=== PATIENT | female | born 1930 | race Caucasian/White ===

== ENCOUNTER 2017-01-12 08:49 | Inpatient (IN) | payer OTHER ==
[~2017-01-12] VITALS: Ht 160 cm; Wt 61.3 kg
[2017-01-12] VITALS (7 sets, daily range): BP systolic 132–158; BP diastolic 66–102
[~2017-01-12 08:49] MED LIST: DILT90TA PO; ENOX40SY4 SQ; FOLI-17 PO; HYDR-3237 PO; LISI-170 PO; LISINOPRIL; LOVA20TA68; LOVA40TA2 PO; METO25TA91 PO; MULT-750 PO
[2017-01-12 09:16] LABS: HEMOGLOBIN 14.6 g/dL (11.7-16.4); WHITE BLOOD COUNT 7.9 x10^3/uL (3.4-10)
[2017-01-12] MEDS ORDERED: DILTIAZEM 5 MG/ML, 5ML ONE (09:19)
[2017-01-12 09:29] LABS: ASPARTATE AMINO TRANSFERASE 13 U/L (15-37); BLOOD UREA NITROGEN 10 mg/dL (7-18)
[2017-01-12 09:34] LABS: IS PT STATUS REG ER OR PRE ER? YES
[2017-01-12] MEDS ORDERED: NYSTATIN TOPICAL POWDER 15GM TP SCH (10:00)
[2017-01-12] MEDS ORDERED: SODIUM CHLORIDE 0.9% 1,000 ML IV ONE ×2 (10:00→10:30)
[2017-01-12] MEDS ORDERED: DILTIAZEM 5 MG/ML, 5ML IV ONE (10:00)
[2017-01-12] MEDS ORDERED: SODIUM CHLORIDE 0.9% 1,000ML IVBOLUS ONE (10:00)
[2017-01-12] MEDS ORDERED: LISINOPRIL 20 MG TABLET PO SCH (10:30)
[2017-01-12] MEDS ORDERED: SODIUM CHLORIDE FLUSH 10ML SYR IVF PRN (10:30)
[2017-01-12] MEDS ORDERED: SODIUM CHLORIDE FLUSH 10ML SYR IVF ONE (10:30)
[2017-01-12] MEDS ORDERED: LISINOPRIL 20 MG TABLET ONE (11:34)
[2017-01-12] MEDS ORDERED: POTASSIUM CHLORIDE 20 MEQ TAB.ER.PRT PO ONE (12:00)
[2017-01-12] MEDS ORDERED: ACETAMINOPHEN 325 MG TABLET PO PRN (12:30)
[2017-01-12] MEDS ORDERED: ONDANSETRON ODT 4 MG PO PRN (12:30)
[2017-01-12] MEDS ORDERED: ONDANSETRON 2MG/ML, 2ML IVPush PRN (12:30)
[2017-01-12] MEDS ORDERED: BISACODYL 10 MG SUPP PR PRN (12:30)
[2017-01-12] MEDS ORDERED: LORazepam 2 MG/ML, 1ML IVPush PRN (12:30)
[2017-01-12] MEDS ORDERED: POLYETHYLENE GLYCOL 17 GM PACKET PO PRN (12:30)
[2017-01-12] MEDS ORDERED: ENALAPRILAT 1.25 MG/ML, 2ML IVPush PRN (12:30)
[2017-01-12] MEDS ORDERED: DOCUSATE 100 MG CAPSULE PO PRN (12:30)
[2017-01-12] MEDS: THIAMINE 100MG TABLET PO SCH (17:14)
[2017-01-12] MEDS: NICOTINE 14MG/24 HR PATCH.TD24 TD SCH (17:14)
[2017-01-12] MEDS: ENOXAPARIN 40 MG/0.4 ML SQ SCH (17:14)
[2017-01-12] MEDS: FOLIC ACID 1 MG TABLET PO SCH (17:14)
[2017-01-12] MEDS: SODIUM CHLORIDE 0.9% 1,000 ML IV SCH (17:15)
[2017-01-12] MEDS: LOVASTATIN 40 MG TABLET PO SCH (21:41)
[2017-01-13 01:11] VITALS: BP 142/81
[2017-01-13 01:13] VITALS: BP 148/95
[2017-01-13 01:15] VITALS: BP 140/84
[2017-01-13] MEDS: ASPIRIN 325 MG TABLET EC PO SCH (05:57)
[2017-01-13] MEDS ORDERED: METOPROLOL SUCCINATE 25 MG TAB.ER.24H PO SCH (06:00)
[2017-01-13 06:11] LABS: HEMATOCRIT 38.8 % (34.6-47.8); HEMOGLOBIN 13.1 g/dL (11.7-16.4); WHITE BLOOD COUNT 4.8 x10^3/uL (3.4-10)
[2017-01-13 06:12] LABS: BLOOD UREA NITROGEN 7 mg/dL (7-18)
[2017-01-13 06:47] VITALS: BP 117/73
[2017-01-13] MEDS ORDERED: FOLIC ACID 1 MG TABLET PO SCH (09:00)
[2017-01-13] MEDS ORDERED: POTASSIUM CHLORIDE 20 MEQ TAB.ER.PRT PO ONE (09:00)
[2017-01-13] MEDS: DILTIAZEM 90 MG TABLET PO SCH (09:04)
[2017-01-13] MEDS: MULTIVITAMIN 1 TABLET PO SCH (09:04)
[2017-01-13] MEDS: FOLIC ACID 1 MG TABLET PO SCH (09:04)
[2017-01-13] MEDS: THIAMINE 100MG TABLET PO SCH (09:04)
[2017-01-13] MEDS: SODIUM CHLORIDE 0.9% 1,000 ML IV SCH (10:00)
[2017-01-13] MEDS: NICOTINE 14MG/24 HR PATCH.TD24 TD SCH (12:30)
[2017-01-13] MEDS: ENOXAPARIN 40 MG/0.4 ML SQ SCH (12:30)
[2017-01-13 13:55] VITALS: BP 108/65
[2017-01-13] MEDS: CARVEDILOL 3.125 MG TABLET PO SCH (17:35)
[2017-01-13 19:09] VITALS: BP 114/67
[2017-01-13 19:40] LABS: BLOOD UREA NITROGEN 7 mg/dL (7-18)
[2017-01-13] MEDS ORDERED: TEMAZEPAM 15 MG CAPSULE PO ONE (20:30)
[2017-01-13] MEDS: LOVASTATIN 40 MG TABLET PO SCH (20:36)
[2017-01-14 01:22] VITALS: BP 107/68
[2017-01-14 05:40] VITALS: BP 132/86
[2017-01-14] MEDS: ASPIRIN 325 MG TABLET EC PO SCH (05:43)
[2017-01-14] MEDS: CARVEDILOL 3.125 MG TABLET PO SCH ×2 (05:43→16:58)
[2017-01-14 06:49] VITALS: BP 145/84
[2017-01-14] MEDS ORDERED: POTASSIUM CHLORIDE 20 MEQ TAB.ER.PRT PO ONE (07:30)
[2017-01-14] MEDS: THIAMINE 100MG TABLET PO SCH (09:56)
[2017-01-14] MEDS: FOLIC ACID 1 MG TABLET PO SCH (09:56)
[2017-01-14] MEDS: DILTIAZEM 90 MG TABLET PO SCH (09:56)
[2017-01-14] MEDS: MULTIVITAMIN 1 TABLET PO SCH (09:57)
[2017-01-14 12:58] VITALS: BP 110/60
[2017-01-14] MEDS: APIXABAN 2.5 MG TABLET PO SCH ×2 (13:27→21:39)
[2017-01-14] MEDS: NICOTINE 14MG/24 HR PATCH.TD24 TD SCH (13:27)
[2017-01-14 15:09] VITALS: BP 110/60
[2017-01-14 18:24] VITALS: BP 113/63
[2017-01-14] MEDS: LOVASTATIN 40 MG TABLET PO SCH (21:39)
[2017-01-15 02:00] VITALS: BP 117/66
[2017-01-15] MEDS: ASPIRIN 325 MG TABLET EC PO SCH (05:47)
[2017-01-15] MEDS: CARVEDILOL 3.125 MG TABLET PO SCH ×2 (05:47→17:33)
[2017-01-15 05:53] LABS: HEMATOCRIT 38.1 % (34.6-47.8); HEMOGLOBIN 12.9 g/dL (11.7-16.4); WHITE BLOOD COUNT 6.2 x10^3/uL (3.4-10)
[2017-01-15 06:06] LABS: BLOOD UREA NITROGEN 9 mg/dL (7-18)
[2017-01-15 07:47] VITALS: BP 165/90
[2017-01-15] MEDS: APIXABAN 2.5 MG TABLET PO SCH ×2 (10:16→21:20)
[2017-01-15] MEDS: MULTIVITAMIN 1 TABLET PO SCH (10:16)
[2017-01-15] MEDS: FOLIC ACID 1 MG TABLET PO SCH (10:16)
[2017-01-15] MEDS: DILTIAZEM 90 MG TABLET PO SCH (10:16)
[2017-01-15] MEDS: THIAMINE 100MG TABLET PO SCH (10:16)
[2017-01-15 16:12] VITALS: BP 122/73
[2017-01-15] MEDS: NICOTINE 14MG/24 HR PATCH.TD24 TD SCH (17:32)
[2017-01-15 20:15] VITALS: BP 110/68
[2017-01-15] MEDS ORDERED: DOCUSATE 100 MG CAPSULE PO PRN (20:30)
[2017-01-15] MEDS ORDERED: POLYETHYLENE GLYCOL 17 GM PACKET PO PRN (20:30)
[2017-01-15] MEDS ORDERED: ONDANSETRON 2MG/ML, 2ML IVPush PRN (20:30)
[2017-01-15] MEDS ORDERED: ACETAMINOPHEN 325 MG TABLET PO PRN (20:30)
[2017-01-15] MEDS ORDERED: ENALAPRILAT 1.25 MG/ML, 2ML IVPush PRN (20:30)
[2017-01-15] MEDS ORDERED: ONDANSETRON ODT 4 MG PO PRN (20:30)
[2017-01-15] MEDS: LOVASTATIN 40 MG TABLET PO SCH (21:20)
[2017-01-16 01:04] VITALS: BP 114/65
[2017-01-16] MEDS: ASPIRIN 325 MG TABLET EC PO SCH (05:35)
[2017-01-16] MEDS: CARVEDILOL 3.125 MG TABLET PO SCH (05:35)
[2017-01-16] MEDS: DILTIAZEM 90 MG TABLET PO SCH (08:10)
[2017-01-16] MEDS: APIXABAN 2.5 MG TABLET PO SCH (08:11)
[2017-01-16] MEDS: FOLIC ACID 1 MG TABLET PO SCH (08:11)
[2017-01-16] MEDS: MULTIVITAMIN 1 TABLET PO SCH (08:12)
[2017-01-16] MEDS: THIAMINE 100MG TABLET PO SCH (08:12)
[2017-01-16 08:39] VITALS: BP 98/62
[2017-01-16 09:04] VITALS: BP 117/73
[2017-01-16] MEDS ORDERED: THIA100T6 PO (12:09)
[2017-01-16] MEDS ORDERED: ASPI-650 PO (12:09)
[2017-01-16] MEDS ORDERED: APIX2.5T PO (12:09)
[2017-01-16] MEDS ORDERED: CARV3.1212 PO (12:09)
[2017-01-16 14:03] VITALS: BP 125/71
[2017-01-31] MEDS ORDERED: NICO-486 TD (22:57)
[2017-01-31] MEDS ORDERED: POLY119P19 PO (22:57)
[2017-01-31] MEDS ORDERED: CARV3.122 PO (22:57)
[2017-01-31] MEDS ORDERED: FAMO-79 PO (22:57)
[2017-01-31] MEDS ORDERED: CEPH-368 PO (23:00)
== END 2017-01-16 16:35 | DRG 309 ==
LOC: ED 10:29 → EDIP 10:30 → ED 10:51 → 3NW 11:55 → 4WST 15:51
PROVIDERS: ADMIT Internal Medicine; ATTEND Family Medicine
PROC: 0T9B70Z Drainage of Bladder with Drainage Device, Via Natural or Artificial Opening (ICD-10-PCS; principal; 2017-01-12)
DX: I48.91 Unspecified atrial fibrillation (principal); E44.0 Moderate protein-calorie malnutrition; B36.9 Superficial mycosis, unspecified; E78.00 Pure hypercholesterolemia, unspecified; E78.5 Hyperlipidemia, unspecified; F17.200 Nicotine dependence, unspecified, uncomplicated; R53.1 Weakness; E87.6 Hypokalemia; R62.7 Adult failure to thrive; W18.30XA Fall on same level, unspecified, initial encounter; I10 Essential (primary) hypertension; J42 Unspecified chronic bronchitis; K44.9 Diaphragmatic hernia without obstruction or gangrene; M85.80 Other specified disorders of bone density and structure, unspecified site; Z53.20 Procedure and treatment not carried out because of patient's decision for unspecified reasons; Z66 Do not resuscitate; Z68.23 Body mass index [BMI] 23.0-23.9, adult; Z71.6 Tobacco abuse counseling
CPT/HCPCS: 36415; 70450; 71010; 80048; 80053; 81003; 82607; 83605; 83690; 83735; 83880; 84443; 84484; 85025; 85610; 85730; 93005; 93306; 96361; 96374; J1650; J2060; J7030